=== PATIENT | male | born 2000 | race Two or more races ===

== ENCOUNTER 2022-06-13 17:03 | Emergency (ER) | payer OTHER ==
[2022-06-13 17:13] VITALS: BP 123/64
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
== END 2022-06-13 17:36 | disposition home or self-care (01) ==
LOC: ED 17:03
DX: T75.4XXA Electrocution, initial encounter (principal)
CPT/HCPCS: 93005; 99283